=== PATIENT | female | born 1945 | race Native Hawaiian/Other Pacific Islander ===

== ENCOUNTER 2021-09-23 08:26 | Outpatient (CLI) | payer BC | END 2021-09-23 21:23 | disposition home or self-care (01) | LOC: US 08:26 | PROVIDERS: ATTEND Podiatrist | DX: M79.604 Pain in right leg (principal); M79.605 Pain in left leg ==

== ENCOUNTER 2021-12-20 18:32 | Emergency (ER) | payer BC ==
[~2021-12-20] VITALS: Ht 157.5 cm; Wt 68.0 kg
[2021-12-20 18:58] LABS: PLATELET COUNT 280 K/uL (152-353)
[2021-12-20 19:21] LABS: POTASSIUM 3.4 mmol/L (3.6-5.2)
[2021-12-20 22:10] VITALS: BP 126/48; TEMP 98.8
== END 2021-12-20 22:10 | disposition home or self-care (01) ==
LOC: ED 18:32
PROVIDERS: Emergency Medicine Emergency Medical Services
PROC: 0HQFXZZ Repair Right Hand Skin, External Approach (ICD-10-PCS; principal; 2021-12-20)
PROC: 2W3CX1Z Immobilization of Right Lower Arm using Splint (ICD-10-PCS; 2021-12-20)
DX: S61.212A Laceration without foreign body of right middle finger without damage to nail, initial encounter (principal); S62.666A Nondisplaced fracture of distal phalanx of right little finger, initial encounter for closed fracture; S00.03XA Contusion of scalp, initial encounter; M25.562 Pain in left knee; N63.22 Unspecified lump in the left breast, upper inner quadrant; W18.39XA Other fall on same level, initial encounter; Y92.093 Driveway of other non-institutional residence as the place of occurrence of the external cause
CPT/HCPCS: 36415; 80048; 83735; 85027; 93005; 96360; 96374; 96375; 99284; J2001; J2270; J2405

== ENCOUNTER 2021-12-24 15:51 | Emergency (ER) | payer BC ==
[~2021-12-24] VITALS: Ht 157.5 cm; Wt 90.7 kg
[2021-12-24 16:12] VITALS: TEMP 97.1
[2021-12-24 16:43] LABS: PLATELET COUNT 353 K/uL (152-353)
[2021-12-24 16:54] LABS: POTASSIUM 3.3 mmol/L (3.6-5.2)
[2021-12-24 17:11] LABS: PARTIAL THROMBOPLASTIN TIME 27.1 SECONDS (24.5-33.6)
[2021-12-24 18:30] VITALS: BP 125/58
== END 2021-12-24 18:30 | disposition home or self-care (01) ==
LOC: ED 15:51
PROVIDERS: Hospitalist
DX: R07.89 Other chest pain (principal); M79.18 Myalgia, other site; I50.9 Heart failure, unspecified
CPT/HCPCS: 36415; 80053; 80320; 81002; 82550; 83880; 84484; 85027; 85379; 85610; 85730; 93005; 96374; 96375; 99284; J1885; J2270; J2405

== ENCOUNTER 2022-05-18 15:00 | Outpatient (CLI) | payer BC ==
[~2022-05-18] VITALS: Ht 167.6 cm; Wt 111.1 kg
[2022-05-18 15:10] VITALS: BP 138/60; TEMP 99.1
[2022-05-18 15:15] LABS: POTASSIUM 3.8 mmol/L (3.6-5.2)
[2022-05-18 16:40] VITALS: BP 139/57; TEMP 98.2
== END 2022-05-18 19:00 | disposition home or self-care (01) ==
LOC: INF 15:00
PROVIDERS: ATTEND Internal Medicine
DX: N39.0 Urinary tract infection, site not specified (principal)
CPT/HCPCS: 36415; 80048; 96365; J3260

== ENCOUNTER 2022-05-19 06:57 | Outpatient (CLI) | payer BC ==
[~2022-05-19] VITALS: Ht 167.6 cm; Wt 109.8 kg
[2022-05-19 14:47] VITALS: BP 119/59; TEMP 98.3
[2022-05-19 15:54] VITALS: BP 132/61; TEMP 98
== END 2022-05-19 19:16 | disposition home or self-care (01) ==
LOC: INF 06:57
PROVIDERS: ATTEND Internal Medicine
DX: N39.0 Urinary tract infection, site not specified (principal)
CPT/HCPCS: 36415; 80200; 96365; J3260

== ENCOUNTER 2022-05-20 15:10 | Outpatient (CLI) | payer BC ==
[~2022-05-20] VITALS: Ht 167.6 cm; Wt 111.1 kg
[2022-05-20 15:00] VITALS: BP 158/71; TEMP 97.9
== END 2022-05-20 19:06 | disposition home or self-care (01) ==
LOC: INF 15:10
PROVIDERS: ATTEND Internal Medicine
DX: N39.0 Urinary tract infection, site not specified (principal)
CPT/HCPCS: 96365; J3260

== ENCOUNTER 2022-05-21 14:37 | Outpatient (CLI) | payer BC ==
[~2022-05-21] VITALS: Ht 167.6 cm; Wt 109.8 kg
[2022-05-21 13:50] VITALS: BP 129/63; TEMP 97.7
[2022-05-21 14:50] VITALS: BP 117/63; TEMP 97.7
== END 2022-05-21 19:00 | disposition home or self-care (01) ==
LOC: INF 14:37
PROVIDERS: ATTEND Internal Medicine
DX: N39.0 Urinary tract infection, site not specified (principal)
CPT/HCPCS: 96374; J3260

== ENCOUNTER 2022-05-22 14:48 | Outpatient (CLI) | payer BC ==
[~2022-05-22] VITALS: Ht 167.6 cm; Wt 109.8 kg
[2022-05-22 15:08] VITALS: BP 160/66; TEMP 97.8
[2022-05-22 16:00] VITALS: BP 125/68; TEMP 97.8
== END 2022-05-22 23:14 | disposition home or self-care (01) ==
LOC: INF 14:48
PROVIDERS: ATTEND Internal Medicine
DX: N39.0 Urinary tract infection, site not specified (principal)
CPT/HCPCS: 96365; J3260

== ENCOUNTER 2023-03-23 17:01 | Inpatient (IN) | payer BC ==
[2023-03-23] VITALS (9 sets, daily range): BP systolic 102–125; BP diastolic 50–69; TEMP 98.3–100; Ht 167.6 cm; Wt 104.3 kg
[~2023-03-23] VITALS: Ht 167.6 cm; Wt 104.3 kg
[2023-03-23 17:49] LABS: PLATELET COUNT 210 K/uL (152-353)
[2023-03-23 17:58] LABS: POTASSIUM 3.8 mmol/L (3.6-5.2)
[2023-03-24 00:20] VITALS: BP 114/76
[2023-03-24 05:01] VITALS: BP 111/50; TEMP 98.8
[2023-03-24 05:49] LABS: POTASSIUM 3.7 mmol/L (3.6-5.2)
[2023-03-24 05:58] LABS: PLATELET COUNT 149 K/uL (152-353)
[2023-03-24 08:24] VITALS: BP 100/43; TEMP 98.6
[2023-03-24] MEDS ORDERED: ASPIRIN/ENTERIC81 MG PO (11:55)
[2023-03-24] MEDS ORDERED: FURO20TA67 PO (11:56)
[2023-03-24] MEDS ORDERED: BACLOFEN10 MG PO (11:57)
[2023-03-24] MEDS ORDERED: ELIQUIS5 MG PO (11:57)
[2023-03-24] MEDS ORDERED: ZOLOFT25 MG PO (11:57)
[2023-03-24] MEDS ORDERED: DIGO0.1230 PO (11:58)
[2023-03-24] MEDS ORDERED: METO50TA63 PO (11:58)
[2023-03-24] MEDS ORDERED: FIORICET 50-3001 CAP PO (12:00)
[2023-03-24] MEDS ORDERED: OMEPRAZOLE DR20 MG PO (12:02)
[2023-03-24] MEDS ORDERED: LIPITOR80 MG PO (12:02)
[2023-03-24] MEDS ORDERED: LISI5TAB10 PO (12:03)
[2023-03-24] MEDS ORDERED: BUSPIRONE10 MG PO (12:03)
[2023-03-24] MEDS ORDERED: FAMOTIDINE40 MG PO (12:04)
[2023-03-24] MEDS ORDERED: PEPCID40 MG PO (13:55)
[2023-03-24 16:19] VITALS: BP 124/44; TEMP 98.8
[2023-03-24 21:00] VITALS: BP 101/44; TEMP 99.4
[2023-03-25 00:09] VITALS: BP 112/44; TEMP 98.2
[2023-03-25 04:00] VITALS: BP 112/51; TEMP 98.5
[2023-03-25 08:00] VITALS: BP 116/56; TEMP 98.8
[2023-03-25 09:14] LABS: POTASSIUM 3.6 mmol/L (3.6-5.2)
[2023-03-25 09:15] LABS: PLATELET COUNT 126 K/uL (152-353)
[2023-03-25 12:00] VITALS: BP 153/66; TEMP 98.8
[2023-03-25 15:53] VITALS: BP 100/62; TEMP 98.3
[2023-03-25 19:24] VITALS: BP 110/67; TEMP 98.5
[2023-03-26] VITALS: BP 121/64; TEMP 98.8
[2023-03-26 04:00] VITALS: BP 122/65; TEMP 98.6
[2023-03-26 04:41] LABS: PLATELET COUNT 140 K/uL (152-353)
[2023-03-26 04:43] LABS: POTASSIUM 3.7 mmol/L (3.6-5.2)
[2023-03-26 08:24] VITALS: BP 140/68; TEMP 98.2
== END 2023-03-26 12:20 | disposition home or self-care (01) | DRG 689 ==
LOC: ED 17:01 → EDIP 21:31 → MED/SURG 21:31
PROVIDERS: Family Medicine; ADMIT Internal Medicine Endocrinology, Diabetes & Metabolism; ATTEND Internal Medicine Endocrinology, Diabetes & Metabolism
DX: N30.01 Acute cystitis with hematuria (principal); G92.8 Other toxic encephalopathy; R78.81 Bacteremia; B96.29 Other Escherichia coli [E. coli] as the cause of diseases classified elsewhere; B96.1 Klebsiella pneumoniae [K. pneumoniae] as the cause of diseases classified elsewhere; R41.82 Altered mental status, unspecified; I10 Essential (primary) hypertension; Z86.73 Personal history of transient ischemic attack (TIA), and cerebral infarction without residual deficits; Z79.01 Long term (current) use of anticoagulants; F03.90 Unspecified dementia, unspecified severity, without behavioral disturbance, psychotic disturbance, mood disturbance, and anxiety
CPT/HCPCS: 36415; 80048; 80053; 81000; 83605; 84484; 85027; 87040; 87077; 87086; 87088; 87186; 87205; 93005; 96365; 96366; 96376; 99284; J0696; J2405; J3370